=== PATIENT | female | born 1945 | race Two or more races ===

== ENCOUNTER 2024-08-02 06:45 | Day surgery (SDC) | payer MEDICARE, MEDICAID, SELFPAY ==
[2024-08-01 14:05] VITALS: BMI 30.2
[2024-08-02] VITALS (12 sets, daily range): BP systolic 139–199; BP diastolic 73–127; PULSE 64–96; RESP 13–22; TEMP 36.1–36.8; O2SAT 95–100; BMI 28.8
[2024-08-02] MEDS: MIDAZOLAM INJ 1 MG/ML VIAL 2 ML (ASD USE ONLY) 2 MG IV (07:33)
[2024-08-02] MEDS: DiphenhydrAMINE INJ 50 MG/ML VIAL 25 MG IV (07:33)
[2024-08-02] MEDS: fentaNYL CIT INJ 50 mCg/ML AMP 2ML (ASD USE ONLY) IV (07:33)
--- NOTE | 2024-08-02 09:08 | SUR.PHASEII ---
0820 Pt remains drowsy, yet approp. Via grocery specialist-pt denies pain or N/V. Abd less firm. Pt passing flatus.
--- NOTE | 2024-08-02 09:14 | SUR.PHASEII ---
0840 Pt more awake and alert. Does c/o tired. Daughter at bedside. Reassurance offered to both. Pt cont to cassandra po fluids and pass flatus. 0900 Pt assessment unchanged. Assisted pt with getting dressed at bedside. Pt requesting daughter to interpret. DC instructions given. Both state understanding. Pt meets dc criteria-to home.
== END 2024-08-02 09:00 | disposition home or self-care (01) ==
PROVIDERS: PCP Family Medicine; Referring Provider Surgery; Visit Provider Surgery
PROC: 0DBE8ZX Excision of Large Intestine, Via Natural or Artificial Opening Endoscopic, Diagnostic (ICD-10-PCS; CPT 45380; principal; 2024-08-02 07:30)
DX: Z12.11 Encounter for screening for malignant neoplasm of colon (principal); Z85.038 Personal history of other malignant neoplasm of large intestine; K62.89 Other specified diseases of anus and rectum; Z98.0 Intestinal bypass and anastomosis status; K64.1 Second degree hemorrhoids; K64.4 Residual hemorrhoidal skin tags; K57.30 Diverticulosis of large intestine without perforation or abscess without bleeding; K56.699 Other intestinal obstruction unspecified as to partial versus complete obstruction
CPT/HCPCS: 45380; A4649; J1200; J2250; J3010

== ENCOUNTER → 2024-08-20 | Outpatient (CLI) | payer MEDICARE, MEDICAID, SELFPAY ==
[2024-08-20 16:49] LABS: Basophils % (Auto) 0 % (0-2.5); Eosinophils # (Auto) 0.2 Thou/mm3 (0.0-0.5); Eosinophils % (Auto) 3 % (0-10); Hematocrit 36.6 % (36.0-46.0); Immature Granulocytes % (Auto) 0 % (0-0); Immature Granulocytes Auto 0.01 Thou/mm3 (0.00-0.00); Lymphocytes # (Auto) 2.5 Thou/mm3 (1.0-4.8); Lymphocytes % (Auto) 35 % (10-50); Mean Corpuscular HGB Conc 32.8 g/dl (31.0-37.0); Mean Corpuscular Volume 88 fL (80-100); Monocytes # (Auto) 0.6 Thou/mm3 (0.0-0.8); Monocytes % (Auto) 8 % (0-12); Neutrophils % (Auto) 54 % (37-80); Nucleated Red Blood Cell % 0 /100 WBC (0); Platelet Count 212 Thou/mm3 (140-440); RDW Standard Deviation 42.3 fL (36.4-46.3); Red Blood Count 4.14 Miln/mm3 (4.00-5.20); White Blood Count 7.3 Thou/mm3 (3.6-11.0)
[2024-08-20 17:01] LABS: Partial Thromboplastin Time 24.7 Seconds (22.0-36.0); Prothrombin Time 10.5 Seconds (9.0-12.2)
[2024-08-20 17:05] LABS: Anion Gap 7 (7-16); BUN/Creatinine Ratio 12 Ratio (12-20); Blood Urea Nitrogen 17 mg/dL (9-23); Carbon Dioxide 29.4 mMol/L (20.0-31.0); Chloride 101 mMol/L (98-107); Creatinine (Component) 1.4 mg/dL (0.6-1.3); Glucose 379 mg/dL (74-106); Osmolality,Calculated 291 (275-295); Potassium 4.7 mMol/L (3.4-5.1); Sodium 137 mMol/L (136-145); eGFR 38 See Note
[2024-08-20 17:06] LABS: Calcium 9.4 mg/dL (8.3-10.6)
== END | disposition home or self-care (01) ==
LOC: COPL 14:47
PROVIDERS: PCP Family Medicine; Referring Provider Internal Medicine; Visit Provider Internal Medicine
DX: I25.10 Atherosclerotic heart disease of native coronary artery without angina pectoris (principal); I48.91 Unspecified atrial fibrillation
CPT/HCPCS: 36415; 80048; 85025; 85610; 85730